=== PATIENT | male | born 1950 | race Caucasian/White ===

== ENCOUNTER 2018-01-12 08:48 | Observation (INO) | payer MEDICARE, MEDICAID ==
[~2018-01-12] VITALS: Ht 157.5 cm; Wt 56.7 kg
[2018-01-12] MEDS ORDERED: ONDANSETRON HCL 4MG/2ML VIAL IV STA (09:15)
[2018-01-12] MEDS ORDERED: MORPHINE SULFATE 4 MG/ML CPJ (NOT FOR IM USE) IV STA (09:15)
[2018-01-12 09:33] LABS: BASOPHILS % 0.6 % (0.0-2.0); EOSINOPHILS % 4.6 % (0.0-5.0); HEMATOCRIT. 41.2 % (42.0-52.0); HEMOGLOBIN. 14.5 g/dL (14.0-18.0); LYMPHOCYTES % 26.8 % (20.0-50.0); MEAN CORPUSCULAR HEMOGLOBIN 34.9 pg (28.0-32.0); MEAN CORPUSCULAR VOLUME 99.5 fL (80.0-94.0); MEAN PLATELET VOLUME 7.6 fl (7.4-10.4); MONOCYTES % 6.5 % (2.0-8.0); NEUTROPHILS % 61.5 % (40.0-76.0); PLATELET 111 x1000/uL (130-400); RED BLOOD CELL COUNT 4.15 mill/uL (4.7-6.1); RED CELL DISTRIBUTION WIDTH 13.9 % (11.6-14.6)
[2018-01-12 09:38] LABS: CHLORIDE 105 mEq/L (98-107)
[2018-01-12 09:43] LABS: D-DIMER 0.91 mg/L FEU (<0.50); INR 1.1; PARTIAL THROMBOPLASTIN TIME 27.3 sec (23.4-31.0); PROTHROMBIN TIME 11.2 sec (9.4-11.6)
[2018-01-12] MEDS ORDERED: KETOROLAC 30MG/ML VIAL IV ONE (10:00)
[2018-01-12] MEDS ORDERED: MORPHINE SULFATE 4 MG/ML CPJ (NOT FOR IM USE) IV ONE (10:45)
[2018-01-12] MEDS ORDERED: IOHEXOL-350 100 ML BOTTLE ONE (11:18)
[2018-01-12] MEDS ORDERED: IPRATROPIUM/ALBUTEROL 0.5-3(2.5)MG/3ML NEB INH PRN (14:15)
[2018-01-12] MEDS ORDERED: ONDANSETRON HCL 4MG/2ML VIAL IV PRN (14:15)
[2018-01-12] MEDS ORDERED: ACETAMINOPHEN 325MG TABLET PO PRN (14:15)
[2018-01-12 15:28] VITALS: BP 155/69
[2018-01-12 15:38] VITALS: BP 155/69
[2018-01-12] MEDS ORDERED: NITR0.4T49 SL (15:54)
[2018-01-12] MEDS ORDERED: CLONIDINE 0.1MG TABLET PO PRN (16:00)
[2018-01-12] MEDS: NITROGLYCERIN 0.4MG TABLET SL SL PRN ×2 (16:08→17:01)
[2018-01-12 16:55] VITALS: BP 123/64
[2018-01-12 20:00] VITALS: BP 133/57
[2018-01-12] MEDS: ENOXAPARIN 40MG/0.4ML SYR SUBCUT SCH (21:25)
[2018-01-12 23:12] LABS: CLARITY URINE CLEAR (CLEAR); COLOR URINE YELLOW (YELLOW); KETONES URINE NEGATIVE (NEGATIVE); LEUKOCYTE ESTERASE URINE NEGATIVE (NEGATIVE); NITRITE URINE NEGATIVE (NEGATIVE); OCCULT BLOOD URINE 2+ (NEGATIVE); PROTEIN URINE NEGATIVE (NEGATIVE); SPECIFIC GRAVITY URINE 1.062 (1.005-1.030)
[2018-01-12 23:34] LABS: *BARBITURATES SCREEN URINE NEGATIVE (NEGATIVE); *BENZODIAZEPINES SCREEN URINE NEGATIVE (NEGATIVE); *COCAINE SCREEN URINE NEGATIVE (NEGATIVE); METHADONE URINE SCREEN NEGATIVE (NEGATIVE); OPIATES URINE SCREEN PRESUMTIVE POSITIVE (NEGATIVE)
[2018-01-12 23:36] LABS: *AMPHETAMINES SCREEN URINE NEGATIVE (NEGATIVE); CANNABINOID URINE SCREEN NEGATIVE (NEGATIVE)
[2018-01-12 23:39] LABS: PHENCYCLIDINE URINE SCREEN NEGATIVE (NEGATIVE)
[2018-01-13] VITALS (7 sets, daily range): BP systolic 96–123; BP diastolic 51–68
[2018-01-13 01:37] LABS: CREATINE KINASE 162 IU/L (39-308)
[2018-01-13 01:38] LABS: CREATINE KINASE MB FRACTION < 0.5 ng/mL (0.5-3.6)
[2018-01-13] MEDS: HYDROCODONE/ACETAMINOPHEN 5/325MG TABLET PO PRN ×2 (02:47→21:53)
[2018-01-13] MEDS ORDERED: REGADENOSON 0.4 MG/5 ML IV ONE ×2 (07:15→10:24)
[2018-01-13] MEDS: PANTOPRAZOLE SODIUM 40 MG/VIAL IV SCH (09:10)
[2018-01-13 09:24] LABS: BASOPHILS % 0.6 % (0.0-2.0); EOSINOPHILS % 5.4 % (0.0-5.0); HEMATOCRIT. 38.4 % (42.0-52.0); HEMOGLOBIN. 13.2 g/dL (14.0-18.0); LYMPHOCYTES % 25.2 % (20.0-50.0); MEAN CORPUSCULAR HEMOGLOBIN 34.2 pg (28.0-32.0); MEAN CORPUSCULAR VOLUME 99.8 fL (80.0-94.0); MONOCYTES % 7.4 % (2.0-8.0); NEUTROPHILS % 61.4 % (40.0-76.0); PLATELET 106 x1000/uL (130-400); RED BLOOD CELL COUNT 3.85 mill/uL (4.7-6.1); RED CELL DISTRIBUTION WIDTH 13.9 % (11.6-14.6)
[2018-01-13 09:29] LABS: CHLORIDE 104 mEq/L (98-107)
[2018-01-13 09:37] LABS: LDL CHOLESTEROL 107 mg/dL (5-100)
[2018-01-13 09:38] LABS: CREATINE KINASE 154 IU/L (39-308); CREATINE KINASE MB FRACTION 0.5 ng/mL (0.5-3.6); HDL CHOLESTEROL 33 mg/dL (40-59); T4 FREE 0.92 ng/dL (0.76-1.46)
[2018-01-13] MEDS: ASPIRIN 81MG EC TABLET PO SCH (11:48)
[2018-01-13] MEDS: NITROGLYCERIN OINT 1GM/INCH UDPKT TD SCH ×3 (11:48→22:00)
[2018-01-13] MEDS ORDERED: SODIUM CHLORIDE 0.9% 250 ML IV ONE (19:45)
[2018-01-13] MEDS: CARVEDILOL 3.125 MG TABLET PO SCH (20:41)
[2018-01-13] MEDS: ATORVASTATIN CALCIUM 10MG TABLET PO SCH (20:41)
[2018-01-13] MEDS: SODIUM CHLORIDE 0.9% 1,000 ML IV SCH (20:41)
[2018-01-13] MEDS: ENOXAPARIN 40MG/0.4ML SYR SUBCUT SCH (20:41)
[2018-01-13] MEDS ORDERED: ACETYLCYSTEINE 200MG/ML 20% VIAL 4ML PO SCH (21:00)
[2018-01-13] MEDS: NITROGLYCERIN 0.4MG TABLET SL SL PRN (22:04)
[2018-01-14 00:05] VITALS: BP 98/50
[2018-01-14 04:00] VITALS: BP 107/58
[2018-01-14] MEDS: NITROGLYCERIN OINT 1GM/INCH UDPKT TD SCH (05:57)
[2018-01-14 06:32] LABS: BASOPHILS % 0.5 % (0.0-2.0); HEMATOCRIT. 36.5 % (42.0-52.0); HEMOGLOBIN. 12.8 g/dL (14.0-18.0); MEAN CORPUSCULAR VOLUME 99.9 fL (80.0-94.0); MEAN PLATELET VOLUME 8.1 fl (7.4-10.4); MONOCYTES % 8.5 % (2.0-8.0); PLATELET 99 x1000/uL (130-400); RED BLOOD CELL COUNT 3.66 mill/uL (4.7-6.1)
[2018-01-14 06:57] LABS: CHLORIDE 103 mEq/L (98-107)
[2018-01-14 08:00] VITALS: BP 108/51
[2018-01-14] MEDS: PANTOPRAZOLE SODIUM 40 MG/VIAL IV SCH (08:49)
[2018-01-14] MEDS: ASPIRIN 81MG EC TABLET PO SCH (08:49)
[2018-01-14] MEDS: SODIUM CHLORIDE 0.9% 1,000 ML IV SCH ×2 (08:53→21:55)
[2018-01-14] MEDS: CARVEDILOL 3.125 MG TABLET PO SCH ×2 (08:53→21:00)
[2018-01-14 12:00] VITALS: BP 110/50
[2018-01-14 16:00] VITALS: BP 116/60
[2018-01-14 20:00] VITALS: BP 103/79
[2018-01-14] MEDS: ENOXAPARIN 40MG/0.4ML SYR SUBCUT SCH (20:51)
[2018-01-14] MEDS: ATORVASTATIN CALCIUM 10MG TABLET PO SCH (20:54)
[2018-01-15 04:00] VITALS: BP 110/79
[2018-01-15 08:00] VITALS: BP 126/64
[2018-01-15] MEDS: ASPIRIN 81MG EC TABLET PO SCH (09:04)
[2018-01-15] MEDS: PANTOPRAZOLE SODIUM 40 MG/VIAL IV SCH (09:04)
[2018-01-15] MEDS: CARVEDILOL 3.125 MG TABLET PO SCH (09:04)
[2018-01-15 11:25] LABS: BASOPHILS % 0.7 % (0.0-2.0); EOSINOPHILS % 2.9 % (0.0-5.0); HEMATOCRIT. 37.6 % (42.0-52.0); HEMOGLOBIN. 13.1 g/dL (14.0-18.0); LYMPHOCYTES % 26.7 % (20.0-50.0); MEAN CORPUSCULAR HEMOGLOBIN 35.1 pg (28.0-32.0); MEAN CORPUSCULAR VOLUME 100.8 fL (80.0-94.0); MEAN PLATELET VOLUME 8.5 fl (7.4-10.4); MONOCYTES % 7.6 % (2.0-8.0); NEUTROPHILS % 62.1 % (40.0-76.0); PLATELET 106 x1000/uL (130-400); RED BLOOD CELL COUNT 3.73 mill/uL (4.7-6.1); RED CELL DISTRIBUTION WIDTH 14.2 % (11.6-14.6)
[2018-01-15 12:00] VITALS: BP 115/58
[2018-01-15] MEDS: HYDROCODONE/ACETAMINOPHEN 5/325MG TABLET PO PRN (13:56)
[2018-01-15 16:00] VITALS: BP 116/67
[2018-01-15 16:59] VITALS: BP 116/67
== END 2018-01-15 17:30 | disposition home or self-care (01) ==
LOC: ER 09:15 → ENRESERV 11:13 → 7WST 12:31 → INTOOBSV 12:31 → EDBEDREQ 12:33 → EDBEDREQTM 12:33 → SUPCPDRO 14:11
PROVIDERS: ADMIT Internal Medicine; ATTEND Internal Medicine
DX: R07.89 Other chest pain (principal); I25.119 Atherosclerotic heart disease of native coronary artery with unspecified angina pectoris; I11.0 Hypertensive heart disease with heart failure; I50.43 Acute on chronic combined systolic (congestive) and diastolic (congestive) heart failure; I25.5 Ischemic cardiomyopathy; I25.2 Old myocardial infarction; E78.5 Hyperlipidemia, unspecified; E11.65 Type 2 diabetes mellitus with hyperglycemia; N13.30 Unspecified hydronephrosis; Z95.1 Presence of aortocoronary bypass graft; Z91.19 Patient's noncompliance with other medical treatment and regimen; Z91.14 Patient's other noncompliance with medication regimen
CPT/HCPCS: 36415; 70450; 71045; 71275; 74176; 76770; 78452; 80048; 80053; 80061; 80305; 81003; 82550; 82553; 83036; 83880; 84439; 84443; 84484; 85025; 85379; 85610; 85730; 93005; 93017; 93306; 93970; 96361; 96372; 96374; 96375; 96376; 99285; A9500; C9113; G0378; J1650; J1885; J2270; J2405; J2785; J7030; J7050; J7608; Q9967

== ENCOUNTER 2018-11-11 07:01 | Emergency (ER) | payer MEDICARE, MEDICAID ==
[~2018-11-11] VITALS: Ht 160 cm; Wt 59.0 kg
[~2018-11-11 07:01] MED LIST: NITR0.4T49 SL
[2018-11-11] MEDS ORDERED: LACTATED RINGERS 1,000 ML IV STA (07:40)
[2018-11-11 08:27] LABS: BASOPHILS % 0.9 % (0.0-2.0); EOSINOPHILS % 2.2 % (0.0-5.0); HEMOGLOBIN. 14.1 g/dL (14.0-18.0); LYMPHOCYTES % 19.3 % (20.0-50.0); MEAN CORPUSCULAR HEMOGLOBIN 35.6 pg (28.0-32.0); MEAN CORPUSCULAR VOLUME 103.3 fL (80.0-94.0); MEAN PLATELET VOLUME 8.2 fl (7.4-10.4); MONOCYTES % 6.7 % (2.0-8.0); NEUTROPHILS % 70.9 % (40.0-76.0); PLATELET 109 x1000/uL (130-400); RED BLOOD CELL COUNT 3.97 mill/uL (4.7-6.1); RED CELL DISTRIBUTION WIDTH 13.9 % (11.6-14.6)
[2018-11-11 08:29] LABS: CHLORIDE 105 mEq/L (98-107)
[2018-11-11 08:36] LABS: PHOSPHORUS 2.4 mg/dL (2.5-4.9)
[2018-11-11] MEDS ORDERED: MAGNESIUM 2 G PREMIX 50 ML IV ONE (09:15)
[2018-11-11] MEDS ORDERED: POTASSIUM-SODIUM PHOSPHATE POWDER PACKET PO ONE (09:15)
[2018-11-11] MEDS ORDERED: HYDROCODONE/ACETAMINOPHEN 5/325MG TABLET PO ONE (09:45)
[2018-11-11 11:33] VITALS: BP 137/76
== END 2018-11-11 12:07 | disposition home or self-care (01) ==
LOC: ER 07:28
DX: R25.2 Cramp and spasm (principal); I25.10 Atherosclerotic heart disease of native coronary artery without angina pectoris; I11.9 Hypertensive heart disease without heart failure; Z88.0 Allergy status to penicillin; Z91.018 Allergy to other foods; Z95.1 Presence of aortocoronary bypass graft
CPT/HCPCS: 36415; 80053; 82330; 83735; 84100; 85025; 85379; 93971; 96365; 99284; J3475; J7120